=== PATIENT | male | born 1955 | race Caucasian/White ===

== ENCOUNTER → 2020-09-14 | Outpatient (CLI) | payer MEDICARE ==
[~2020-09-14] MED LIST: AMLODIPINE BES2.5 MG PO; FLUTICASON0.05 MG/Ac NS; LATANOPROST 2.2.5 ML OU; LISINOPRIL40 MG PO; TIMOLOL MALEATE5 ML OU; [UNRECOGNIZED DRUG - OTHER] MC
[2020-09-14 12:01] LABS: HEMATOCRIT 47.8 % (42.0-52.0); HEMOGLOBIN 16.8 g/dL (13.5-18.0); MEAN PLATELET VOLUME 9.5 fl (7.4-10.4); RED BLOOD COUNT 5.31 M/mm3 (4.20-5.60); RED CELL DISTRIBUTION WIDTH 12.7 % (11.5-14.5); WHITE BLOOD COUNT 8.5 K/mm3 (4.8-10.8)
[2020-09-14 12:11] LABS: ALBUMIN 4.5 g/dL (3.4-4.8); POTASSIUM 4.3 mmol/L (3.5-5.1)
[2020-09-14 12:12] LABS: CALCIUM 9.9 mg/dL (8.3-10.5)
[2020-09-14 12:14] LABS: TOTAL PROTEIN 8.1 g/dL (6.2-8.1)
[2020-09-14 12:16] LABS: TOTAL BILIRUBIN 1.1 mg/dL (0.2-1.2)
== END ==
LOC: LAB 11:46
PROVIDERS: Family Medicine
DX: I10 Essential (primary) hypertension (principal); R35.1 Nocturia; R73.9 Hyperglycemia, unspecified

== ENCOUNTER 2020-09-26 16:39 | Emergency (ER) | payer MEDICARE ==
[2020-09-26 17:19] LABS: BASO # 0.03 (0.02-0.10); EOS # 0.13 (0.04-0.40); EOS % 0.9 % (0.0-4.0); HEMATOCRIT 45.7 % (42.0-52.0); HEMOGLOBIN 16.4 g/dL (13.5-18.0); MEAN CELL VOLUME 88 fl (78-100); MEAN CORPUSCULAR HEMOGLOBIN 32 pg (27-31); MEAN CORPUSCULAR HGB CONC 36 g/dL (33-37); MEAN PLATELET VOLUME 8.7 fl (7.4-10.4); MONO # 1.33 (0.20-0.80); NEU # 10.27 (1.40-6.50); PLATELET COUNT 329 K/mm3 (130-400); RED CELL DISTRIBUTION WIDTH 12.2 % (11.5-14.5); WHITE BLOOD COUNT 14.3 K/mm3 (4.8-10.8)
[2020-09-26 17:29] LABS: ALBUMIN 4.3 g/dL (3.4-4.8)
[2020-09-26 17:30] LABS: POTASSIUM 4.1 mmol/L (3.5-5.1); SODIUM 130 mmol/L (136-145)
[2020-09-26 17:31] LABS: CALCIUM 9.6 mg/dL (8.3-10.5)
[2020-09-26 17:32] LABS: GLUCOSE 181 mg/dL (75-110); TOTAL PROTEIN 7.9 g/dL (6.2-8.1)
[2020-09-26 17:33] LABS: CARBON DIOXIDE 23 mmol/L (23-31)
[2020-09-26 17:34] LABS: PROTHROMBIN TIME 10.1 SECONDS (9.0-12.0); TOTAL BILIRUBIN 0.7 mg/dL (0.2-1.2)
[2020-09-26 17:37] LABS: AST-SGOT 19 U/L (5-34)
[2020-09-26 17:38] LABS: ALT/SGPT 22 U/L (0-55)
[2020-09-26 17:56] LABS: TROPONIN-I < 0.03 ng/mL (<0.030)
[2020-09-26 18:10] LABS: D-DIMER 3.44 mg/L FEU (0.15-0.50)
[2020-09-26] MEDS ORDERED: FLUTICASON0.05 MG/Ac NS (19:13)
[2020-09-26] MEDS ORDERED: LATANOPROST 2.2.5 ML OU (19:13)
[2020-09-26] MEDS ORDERED: LISINOPRIL40 MG PO (19:13)
[2020-09-26] MEDS ORDERED: AMLODIPINE BES2.5 MG PO (19:13)
[2020-09-26] MEDS ORDERED: TIMOLOL MALEATE5 ML OU (19:13)
[2020-09-26] MEDS ORDERED: [UNRECOGNIZED DRUG - OTHER] MC (19:14)
[2020-09-27 00:48] VITALS: BP 101/90
== END 2020-09-27 00:48 | disposition short-term general hospital (02) ==
LOC: ED 16:39
PROVIDERS: Nurse Practitioner
DX: I31.3 Pericardial effusion (noninflammatory) (principal); D72.829 Elevated white blood cell count, unspecified; I48.91 Unspecified atrial fibrillation; Z85.118 Personal history of other malignant neoplasm of bronchus and lung; Z20.822 Contact with and (suspected) exposure to COVID-19; Z90.2 Acquired absence of lung [part of]
CPT/HCPCS: J2270; J2405; Q9967